=== PATIENT | male | born 1960 | race Caucasian/White ===

== ENCOUNTER 2020-08-29 20:32 | Emergency (ER) | payer BC ==
[2020-08-29] MEDS ORDERED: DIPH/PERTUSS(ACELL)/TETANUS VAC/PF 0.5 ML SYR (>=10YO) IM ONE (21:03)
--- NOTE | 2020-08-29 21:06 | ER Document Report ---
ED Medical Screen (RME) - General Chief Complaint: Snake Bite Stated Complaint: SNAKE BITE-LEFT FOOT Primary Care Provider: KD PAIGE [Primary Care Provider] - Follow up as needed Notes: Patient is a 60-year-old white male with no reported past medical history presents the emergency department the chief complaint of snakebite to the foot that occurred about an hour prior to arrival. States that he had a flashlight felt a strike at the foot witnessed a copperhead per his history. Reports over the past hour he is developed some bruising and swelling at the site of the bite. 2 visible puncture sites to the foot. States that he has pretty quick reflexes feels like he pulled away quickly and therefore suffered a more superficial injury. Denies any bleeding from the wound. States he is got some warm sensation of the foot feels like something is traveling up the leg. Denies any chest pain or shortness of breath. Charge nurse notified at 9:05 PM the patient status and need for immediate bed placement. I have treated and performed a rapid initial assessment of this patient. A comprehensive ED assessment and evaluation of the patient, analysis of test results and completion of medical decision making process will be conducted by additional ED providers. PHYSICAL EXAMINATION: GENERAL: Well-appearing, well-nourished and in no acute distress. A&Ox4. Answers questions appropriately. Doctor's Discharge - Discharge Referrals: KD PAIGE [Primary Care Provider] - Follow up as needed
[2020-08-29] MEDS ORDERED: DIPHENHYDRAMINE HCL 50 MG/ML VIAL IV ONE (21:17)
[2020-08-29] MEDS ORDERED: FAMOTIDINE INJ/PF 20 MG/2 ML SDV IV ONE (21:18)
[2020-08-29] MEDS ORDERED: ANTIVENIN,CROTALIDAE FAB(OVIN) INJ 1 VIAL IV ONE (21:18)
[2020-08-29] MEDS ORDERED: DEXAMETHASONE SOD PHOS INJ 10 MG/1 ML VIAL IV ONE (21:18)
--- NOTE | 2020-08-29 21:25 | ER Document Report ---
ED Animal Bite - General Chief Complaint: Snake Bite Stated Complaint: SNAKE BITE-LEFT FOOT Time Seen by Provider: 08/29/20 21:17 Primary Care Provider: KD PAIGE [NO LOCAL MD] - Follow up as needed Mode of Arrival: Ambulatory Information source: Patient Notes: ED Medical Screen (Phil notes) - General Chief Complaint: Snake Bite Stated Complaint: SNAKE BITE-LEFT FOOT Primary Care Provider: KD PAIGE [Primary Care Provider] - Follow up as needed Notes: Patient is a 60-year-old white male with no reported past medical history presents the emergency department the chief complaint of snakebite to the foot that occurred about an hour prior to arrival. States that he had a flashlight felt a strike at the foot witnessed a copperhead per his history. Reports over the past hour he is developed some bruising and swelling at the site of the bite. 2 visible puncture sites to the foot. States that he has pretty quick reflexes feels like he pulled away quickly and therefore suffered a more superficial injury. Denies any bleeding from the wound. States he is got some warm sensation of the foot feels like something is traveling up the leg. Denies any chest pain or shortness of breath. Charge nurse notified at 9:05 PM the patient status and need for immediate bed placement. I have treated and performed a rapid initial assessment of this patient. A comprehensive ED assessment and evaluation of the patient, analysis of test results and completion of medical decision making process will be conducted by additional ED providers. PHYSICAL EXAMINATION: GENERAL: Well-appearing, well-nourished and in no acute distress. A&Ox4. Answers questions appropriately. MY NOTES 60-year-old male arrives from [facility] where he was walking his dog and out on his front porch a copperhead bit him on his left medial instep of his sandal and foot. He notices dog did not want to go out initially and then abruptly went on to the porch. Patient denies any prior history of any snake bites but did advise many people in his neighborhood have seen copperhead's in their yards this summer. Patient denies any allergies denies any medical problems denies any heart disease strokes kidney disease or skin disease.. Medications were written initially at triage. Patient reports he has not taken any medication thus far and he was driven by his who is his designated diesel truck driver tonight. The swelling to his left medial foot is already around 7 and half centimeters diameter and to obvious ecchymotic appearing snake bite compressions are along the instep which are tender to palpation. He has good pulses to his dorsalis pedis however his posterior tibialis has edema to it and I am unable to receive a pulse in this particular area. He has good sensation to his left foot thus far. TRAVEL OUTSIDE OF THE [place] IN LAST 30 DAYS: No - HPI Location of injury: LLE Severity of injury: Bitten Onset: Just prior to arrival Quality of pain: Achy Pain Level: 1 Severity: Mild Context of attack: "Unprovoked" attack Appearance of animal: Unknown Animal's immunizations: Unknown Animal captured or known: No Animal control notified: No Animal control form completed: No - Related Data Allergies/Adverse Reactions: No Known Allergies Allergy (Unverified 08/29/20 21:32) Past Medical History - General Information source: Patient - Social History Smoking Status: Never Smoker Cigarette use (# per day): No Chew tobacco use (# tins/day): No Smoking Education Provided: No Frequency of alcohol use: None Drug Abuse: None Lives with: Family Family History: Reviewed & Not Pertinent Patient has suicidal ideation: No Patient has homicidal ideation: No Review of Systems - Review of Systems Constitutional: No symptoms reported EENT: No symptoms reported Cardiovascular: No symptoms reported Respiratory: No symptoms reported Gastrointestinal: No symptoms reported Genitourinary: No symptoms reported Male Genitourinary: No symptoms reported Musculoskeletal: See HPI, Joint swelling - Left foot medially Skin: No symptoms reported Hematologic/Lymphatic: No symptoms reported Neurological/Psychological: See HPI, Tingling - LLE edema Physical Exam - Vital signs Vitals: Resp Pulse Ox 15 98 08/29/20 21:33 08/29/20 21:33 Interpretation: Normal - General General appearance: Appears well In distress: None - HEENT Head: Normocephalic, Atraumatic Eyes: Normal Pupils: PERRL External canal: Normal Tympanic membrane: Normal Sinus: Normal Nasal: Normal Mouth/Lips: Normal Mucous membranes: Normal - Respiratory Respiratory status: No respiratory distress Chest status: Nontender Breath sounds: Normal Chest palpation: Normal - Cardiovascular Rhythm: Regular Heart sounds: Normal auscultation Murmur: No - Abdominal Inspection: Normal Distension: No distension Bowel sounds: Normal Tenderness: Nontender Organomegaly: No organomegaly - Rectal Prostate: Other - deferred - Genitourinary Scrotum: Other - deferred - Back Back: Normal, Nontender - Extremities General upper extremity: Normal inspection, Nontender, Normal color, Normal ROM, Normal temperature General lower extremity: Normal inspection, Nontender, Normal color, Normal ROM, Normal temperature, Normal weight bearing, Other - Pulses improved by time of arrival ant tibialis. No: Kevin's sign - Neurological Neuro grossly intact: Yes Cognition: Normal Orientation: AAOx4 [place] Coma Scale Eye Opening: Spontaneous [place] Coma Scale Verbal: Oriented [place] Coma Scale Motor: Obeys Commands [place] Coma Scale Total: 15 Speech: Normal Motor strength normal: LUE, RUE, LLE, RLE Sensory: Normal - Psychological Associated symptoms: Normal affect, Normal mood - Skin Skin Temperature: Warm Skin Moisture: Dry Course - Vital Signs Vital signs: Temp Pulse Resp BP Pulse Ox 15 135/93 H 97 08/29/20 21:59 08/29/20 22:00 08/29/20 22:01 - Laboratory Result Diagrams: 08/29/20 21:40 08/29/20 21:40 Laboratory results interpreted by me: 08/29/20 08/29/20 21:40 22:32 Glucose 115 H Creatine Kinase 176 H Urine Urobilinogen 4.0 H Critical Care Note - Critical Care Note Comments: I discussed case with Dr. Cordero surgeon and he advises research home economist with snake bites and therefore will have the patient follow-up with a family practice or urgent care tomorrow and to keep the leg elevated for the next 24 hours. Patient much improved with decreased edema of ankle foot by 2312 and I evaluated the patient as well in room 18. Patient also received Rocephin 1 g IV. Discharge - Discharge Clinical Impression: Snake bite Qualifiers: Encounter type: initial encounter Qualified Code(s): W59.11XA - Bitten by nonvenomous snake, initial encounter Injury of left foot Qualifiers: Encounter type: initial encounter Qualified Code(s): S99.922A - Unspecified injury of left foot, initial encounter Condition: Stable Disposition: HOME, SELF-CARE Additional Instructions: Keep affected left foot elevated at least 15 degrees ; take Benadryl 3 times a day and Pepcid twice a day x 3-5 days Prescriptions: Cephalexin Monohydrate [Keflex 500 mg Capsule] 500 mg PO BID 10 Days #20 capsule Referrals: LOCALMD,NO [NO LOCAL MD] - Follow up as needed
[2020-08-29 22:10] LABS: ABSOLUTE BASOPHILS # (AUTO) 0.1 10^3/uL (0.0-0.2); ABSOLUTE EOSINOPHILS # (AUTO) 0.2 10^3/uL (0.0-0.6); ABSOLUTE LYMPHOCYTES (AUTO) 2.6 10^3/uL (0.5-4.7); ABSOLUTE MONOCYTES (AUTO) 0.9 10^3/uL (0.1-1.4); MEAN CORPUSCULAR VOLUME 93 fl (80-97); TOTAL CELLS COUNTED % (AUTO) 100 %
[2020-08-29 22:17] LABS: ABSOLUTE NEUT (AUTO) 4.6 10^3/uL (1.7-8.2); BASOPHILS % (AUTO) 0.8 % (0-2); EOSINOPHILS % (AUTO) 2.6 % (0-6); HEMOGLOBIN 15.7 g/dL (13.5-17.0); LYMPHOCYTES % (AUTO) 30.8 % (13-45); MEAN CORPUSCULAR HEMOGLOBIN 32.6 pg (27.0-33.4); MEAN CORPUSCULAR HGB CONC 34.9 g/dL (32.0-36.0); MONOCYTES % (AUTO) 10.8 % (3-13); PLATELET COUNT 241 10^3/uL (150-450); RED BLOOD COUNT 4.81 10^6/uL (4.35-5.55); RED CELL DISTRIBUTION WIDTH 13.1 % (11.5-14.0); WHITE BLOOD COUNT 8.4 10^3/uL (4.0-10.5)
[2020-08-29 22:19] LABS: FIBRINOGEN 416 mg/dL (209-497); PROTHROMBIN TIME 12.3 SEC (11.4-15.4)
[2020-08-29 22:20] LABS: PARTIAL THROMBOPLASTIN TIME 29.3 SEC (23.5-35.8)
[2020-08-29] MEDS ORDERED: CEFTRIAXONE INJ 1000 MG VIAL IV ONE (22:33)
[2020-08-29 22:34] LABS: ANION GAP 12 (5-19); BLOOD UREA NITROGEN 20 mg/dL (7-20); CALCIUM 9.7 mg/dL (8.4-10.2); CARBON DIOXIDE 24 mmol/L (22-30); CHLORIDE 103 mmol/L (98-107); CREATINE KINASE 176 U/L (55-170); GLUCOSE 115 mg/dL (75-110); POTASSIUM 4.2 mmol/L (3.6-5.0)
[2020-08-29 22:58] LABS: APPEARANCE,URINE SLIGHTLY-CLOUDY; BILIRUBIN,URINE NEGATIVE (NEGATIVE); CALCIUM OXALATE CRYSTALS,URINE FEW /HPF; COLOR,URINE YELLOW; GLUCOSE, URINE NEGATIVE (NEGATIVE); KETONES,URINE NEGATIVE (NEGATIVE); LEUKOCYTE ESTERASE,URINE NEGATIVE (NEGATIVE); NITRITE,URINE NEGATIVE (NEGATIVE); PROTEIN,URINE NEGATIVE (NEGATIVE); URINE SPECIFIC GRAVITY 1.029
[2020-08-29 23:49] VITALS: BP 120/72
== END 2020-08-29 23:33 | disposition home or self-care (01) ==
LOC: ER 20:32
DX: S99.922A Unspecified injury of left foot, initial encounter (principal); W59.11XA Bitten by nonvenomous snake, initial encounter
CPT/HCPCS: 99283; 96372; 96375; 96365; 36415; 87040; 82550; 85025; 85384; 85610; 85730; 83874; 80048; 81001; 85379; 90715; J1200; J0696; S0028; J1100